=== PATIENT | male | born 2000 | race Caucasian/White ===

== ENCOUNTER 2021-02-11 15:41 | Emergency (ER) | payer OTHER ==
[~2021-02-11] VITALS: Ht 165.1 cm; Wt 84.1 kg
[2021-02-11 18:07] VITALS: BP 137/68
== END 2021-02-11 18:10 | disposition home or self-care (01) ==
LOC: ED 16:10
DX: S93.492A Sprain of other ligament of left ankle, initial encounter (principal); X58.XXXA Exposure to other specified factors, initial encounter; Y93.89 Activity, other specified; Y92.328 Other athletic field as the place of occurrence of the external cause; Y99.8 Other external cause status
CPT/HCPCS: 99283

== ENCOUNTER 2021-02-12 20:25 | Emergency (ER) | payer OTHER ==
[~2021-02-12] VITALS: Ht 165.1 cm; Wt 80.0 kg
--- NOTE | 2021-02-12 20:47 | NUR ---
PT. STUDENT TO BS FOR EVAL.
--- NOTE | 2021-02-12 21:31 | NUR ---
PT. CALLED RN TO ROOM ASKING TO GO HOME. PT. HAS LEG ELEVATED WITH WARM BLANKETS. PT. STATES "IF YOU'RE NOT GOING TO TREAT ME THEN I JUST WANT A WORK NOTE AND I'LL JUST GO HOME."
[2021-02-12 22:24] VITALS: BP 123/73
== END 2021-02-12 22:28 | disposition home or self-care (01) ==
LOC: ED 22:21
DX: S93.492A Sprain of other ligament of left ankle, initial encounter (principal); X58.XXXA Exposure to other specified factors, initial encounter; Y93.89 Activity, other specified; Y92.328 Other athletic field as the place of occurrence of the external cause; Y99.8 Other external cause status
CPT/HCPCS: 99281

== ENCOUNTER 2021-06-10 17:55 | Emergency (ER) | payer OTHER ==
[~2021-06-10] VITALS: Ht 165.1 cm; Wt 90.0 kg
[2021-06-10 18:05] VITALS: BP 133/81
[2021-06-10] MEDS ORDERED: HYDROcodone/APAP 5/325 TABLET ONE (19:18)
[2021-06-10] MEDS ORDERED: HYDROcodone/APAP 5/325 TABLET PO ONE (19:30)
== END 2021-06-10 20:00 | disposition home or self-care (01) ==
LOC: ED 19:53
DX: M25.561 Pain in right knee (principal); M25.461 Effusion, right knee
CPT/HCPCS: 29505; 99283